=== PATIENT | male | born 1985 | race Caucasian/White ===

== ENCOUNTER 2020-06-11 18:16 | Inpatient (IN) | payer OTHER ==
[2020-06-11 18:41] VITALS: BMI 32.8
[2020-06-11] MEDS ORDERED: BISMUTH SUBSALICYLATE 524 MG/30 ML UD PO PRN (18:57)
[2020-06-11] MEDS ORDERED: MAGNESIUM HYDROX 2400MG/30ML ORAL SUSPENSION 30 ML CUP PO PRN (18:57)
[2020-06-11] MEDS ORDERED: MAGNESIUM CITRATE 300 ML BOTTLE PO PRN (18:57)
[2020-06-11] MEDS ORDERED: MAG HYDROX/AL HYDROX/SIMETH 30 ML UNIT-DOSE CUP PO PRN (18:57)
[2020-06-11] MEDS ORDERED: METHOCARBAMOL 500 MG TABLET PO PRN (18:57)
[2020-06-11] MEDS ORDERED: ONDANSETRON *ODT* 4 MG TABLET SL PRN (18:57)
[2020-06-11] MEDS ORDERED: IBUPROFEN 400 MG TABLET (FP) PO PRN (18:57)
[2020-06-11] MEDS ORDERED: MENTHOL/PHENOL 1 EACH UD MM PRN (18:57)
[2020-06-11] MEDS ORDERED: ACETAMINOPHEN 325 MG TABLET (FP) PO PRN ×2 (18:57)
[2020-06-11] MEDS ORDERED: cloNIDine HCL 0.1 MG TABLET PO PRN (18:59)
[2020-06-11] MEDS: hydrOXYzine PAMOATE 25 MG CAPSULE (FP) PO PRN (20:12)
[2020-06-11] MEDS ORDERED: METHADONE HCL 10 MG TABLET (FOR DETOX USE ONLY) PO ONE (22:00)
[2020-06-11] MEDS: THIAMINE HCL 100 MG TABLET (FP) PO SCH (22:12)
[2020-06-11] MEDS: MELATONIN 5 MG TABLETS PO SCH (22:12)
[2020-06-12] MEDS ORDERED: METHADONE HCL 10 MG TABLET (FOR DETOX USE ONLY) ONE (09:19)
[2020-06-12] MEDS ORDERED: METHADONE HCL 5 MG TABLET (FOR DETOX USE ONLY) ONE (09:19)
[2020-06-12] MEDS ORDERED: METHADONE (DETOX) 20 MG, METHADONE (DETOX) 5 MG PO ONE (10:00)
[2020-06-12 10:19] LABS: POTASSIUM 4.2 mmol/L (3.5-5.1)
[2020-06-12 10:23] LABS: HEMATOCRIT 40.1 % (35.4-49); HEMOGLOBIN 12.8 GM/dL (11.7-16.9); MCH 26.6 pg (25.7-33.7); MCHC 31.9 g/dl (32.0-35.9); MEAN CELL VOLUME 83.4 fl (80-96); MEAN PLT VOLUME 8.7 fl (7.5-11.1); PLATELET COUNT 299 K/MM3 (134-434); RBC 4.81 M/mm3 (4.00-5.60); RDW 13.5 % (11.9-15.9); WHITE BLOOD COUNT 6.5 K/mm3 (4.0-10.0)
[2020-06-12] MEDS: PRENATAL VITAMINS W/ FOLIC ACID TABLET (FP) PO SCH (10:25)
[2020-06-12 10:26] LABS: ALBUMIN 3.5 g/dl (3.4-5.0); BLOOD UREA NITROGEN 13.8 mg/dL (7-18); CALCIUM 9.4 mg/dL (8.5-10.1)
[2020-06-12 10:31] LABS: BILIRUBIN,TOTAL 0.6 mg/dL (0.2-1); TOT PROT 6.8 g/dl (6.4-8.2)
[2020-06-12] MEDS: hydrOXYzine PAMOATE 25 MG CAPSULE (FP) PO PRN ×2 (13:03→19:40)
[2020-06-12] MEDS: MELATONIN 5 MG TABLETS PO SCH (23:33)
[2020-06-12] MEDS: THIAMINE HCL 100 MG TABLET (FP) PO SCH (23:33)
[2020-06-13] MEDS ORDERED: METHADONE HCL 10 MG TABLET (FOR DETOX USE ONLY) PO ONE (10:00)
[2020-06-13] MEDS: PRENATAL VITAMINS W/ FOLIC ACID TABLET (FP) PO SCH (10:36)
[2020-06-13] MEDS: diazePAM 5 MG TABLET PO PRN ×3 (11:14→20:08)
[2020-06-14] MEDS: MELATONIN 5 MG TABLETS PO SCH ×2 (00:09→22:26)
[2020-06-14] MEDS: THIAMINE HCL 100 MG TABLET (FP) PO SCH ×2 (00:10→22:25)
[2020-06-14] MEDS: diazePAM 5 MG TABLET PO PRN ×4 (08:45→22:25)
[2020-06-14] MEDS ORDERED: METHADONE HCL 10 MG TABLET (FOR DETOX USE ONLY) ONE (09:35)
[2020-06-14] MEDS ORDERED: METHADONE HCL 5 MG TABLET (FOR DETOX USE ONLY) ONE (09:35)
[2020-06-14] MEDS ORDERED: METHADONE (DETOX) 10 MG, METHADONE (DETOX) 5 MG PO ONE (10:00)
[2020-06-14] MEDS: PRENATAL VITAMINS W/ FOLIC ACID TABLET (FP) PO SCH (10:38)
[2020-06-15] MEDS: diazePAM 5 MG TABLET PO PRN ×2 (05:46→10:17)
[2020-06-15] MEDS ORDERED: METHADONE HCL 10 MG TABLET (FOR DETOX USE ONLY) PO ONE (10:00)
[2020-06-15] MEDS: PRENATAL VITAMINS W/ FOLIC ACID TABLET (FP) PO SCH (10:16)
[2020-06-15] MEDS: hydrOXYzine PAMOATE 25 MG CAPSULE (FP) PO PRN ×2 (16:05→22:13)
[2020-06-15] MEDS: THIAMINE HCL 100 MG TABLET (FP) PO SCH (22:12)
[2020-06-15] MEDS: MELATONIN 5 MG TABLETS PO SCH (22:12)
[2020-06-16] MEDS ORDERED: METHADONE HCL 5 MG TABLET (FOR DETOX USE ONLY) PO ONE (06:00)
[2020-06-16 06:46] VITALS: TEMP 97.1
[2020-06-16 11:17] VITALS: BP 138/89; PULSE 105
== END 2020-06-16 09:54 | disposition home or self-care (01) | DRG 773 ==
LOC: YASAS 18:16 → Y6N 19:15
PROVIDERS: ADMIT Allergy & Immunology; ATTEND Allergy & Immunology
PROC: HZ2ZZZZ Detoxification Services for Substance Abuse Treatment (ICD-10-PCS; principal; 2020-06-11)
DX: F11.23 Opioid dependence with withdrawal (principal); F17.210 Nicotine dependence, cigarettes, uncomplicated
CPT/HCPCS: 36415; 80053; 85027; 86780; 93005; 93010; C9803; J0735; U0003

== ENCOUNTER 2021-06-14 16:45 | Inpatient (IN) | payer OTHER ==
[2021-06-14 18:34] VITALS: BMI 37.8
[2021-06-14] MEDS ORDERED: MENTHOL/PHENOL 1 EACH UD MM PRN (18:57)
[2021-06-14] MEDS ORDERED: IBUPROFEN 400 MG TABLET (FP) PO PRN (18:57)
[2021-06-14] MEDS ORDERED: ONDANSETRON *ODT* 4 MG TABLET SL PRN (18:57)
[2021-06-14] MEDS ORDERED: MAGNESIUM HYDROX 2400MG/30ML ORAL SUSPENSION 30 ML CUP PO PRN (18:57)
[2021-06-14] MEDS ORDERED: MAG HYDROX/AL HYDROX/SIMETH 30 ML UNIT-DOSE CUP PO PRN (18:57)
[2021-06-14] MEDS ORDERED: BISMUTH SUBSALICYLATE 524 MG/30 ML PO PRN (18:57)
[2021-06-14] MEDS ORDERED: ACETAMINOPHEN 325 MG TABLET (FP) PO PRN ×2 (18:57)
[2021-06-14] MEDS ORDERED: MAGNESIUM CITRATE 300 ML BOTTLE PO PRN (18:57)
[2021-06-14] MEDS: PRENATAL VITAMINS W/ FOLIC ACID TABLET (FP) PO SCH (19:56)
[2021-06-14] MEDS: MELATONIN 5 MG TABLETS PO SCH (22:24)
[2021-06-14] MEDS: THIAMINE HCL 100 MG TABLET (FP) PO SCH (22:24)
[2021-06-14] MEDS: hydrOXYzine PAMOATE 25 MG CAPSULE (FP) PO SCH (22:24)
[2021-06-14] MEDS: METHOCARBAMOL 500 MG TABLET PO PRN (22:25)
[2021-06-15] MEDS: hydrOXYzine PAMOATE 25 MG CAPSULE (FP) PO SCH ×5 (06:07→22:35)
[2021-06-15] MEDS: PRENATAL VITAMINS W/ FOLIC ACID TABLET (FP) PO SCH (10:14)
[2021-06-15] MEDS ORDERED: FLU VACC QS2021-22(6MOS UP)/PF 60 MCG/0.5 ML SYRINGE IM ONE (13:00)
[2021-06-15 13:56] LABS: HEMATOCRIT 37.9 % (35.4-49); HEMOGLOBIN 12.5 GM/dL (11.7-16.9); MCH 27.2 pg (25.7-33.7); MEAN CELL VOLUME 82.3 fl (80-96); MEAN PLT VOLUME 8.5 fl (7.5-11.1); PLATELET COUNT 270 10^3/uL (134-434); RBC 4.61 M/mm3 (4.00-5.60); RDW 13.7 % (11.9-15.9); WHITE BLOOD COUNT 8.9 K/mm3 (4.0-10.0)
[2021-06-15 14:24] LABS: ALBUMIN 3.2 g/dl (3.4-5.0); BLOOD UREA NITROGEN 16.7 mg/dL (7-18)
[2021-06-15 14:25] LABS: CALCIUM 9.3 mg/dL (8.5-10.1)
[2021-06-15 14:28] LABS: TOT PROT 7.1 g/dl (6.4-8.2)
[2021-06-15 14:29] LABS: BILIRUBIN,TOTAL 0.4 mg/dL (0.2-1)
[2021-06-15 16:08] LABS: HIV INTERPRETATION NEGATIVE (NEGATIVE)
[2021-06-15] MEDS ORDERED: methaDONE HCL 10 MG TABLET (FOR DETOX USE ONLY) PO ONE (18:34)
[2021-06-15] MEDS: THIAMINE HCL 100 MG TABLET (FP) PO SCH (22:35)
[2021-06-15] MEDS: MELATONIN 5 MG TABLETS PO SCH (22:35)
[2021-06-16] MEDS: hydrOXYzine PAMOATE 25 MG CAPSULE (FP) PO SCH ×5 (06:57→22:13)
[2021-06-16] MEDS: PRENATAL VITAMINS W/ FOLIC ACID TABLET (FP) PO SCH (10:29)
[2021-06-16] MEDS: NICOTINE 10 MG CARTRIDGE (INHALER) IH PRN (15:53)
[2021-06-16] MEDS: METHOCARBAMOL 500 MG TABLET PO PRN (18:01)
[2021-06-16] MEDS: THIAMINE HCL 100 MG TABLET (FP) PO SCH (22:13)
[2021-06-16] MEDS: cloNIDine HCL 0.1 MG TABLET PO PRN (22:14)
[2021-06-16] MEDS: MELATONIN 5 MG TABLETS PO SCH (22:14)
[2021-06-17] MEDS: hydrOXYzine PAMOATE 25 MG CAPSULE (FP) PO SCH ×5 (07:13→22:01)
[2021-06-17] MEDS ORDERED: methaDONE HCL 10 MG TABLET (FOR DETOX USE ONLY) PO ONE (10:00)
[2021-06-17] MEDS: PRENATAL VITAMINS W/ FOLIC ACID TABLET (FP) PO SCH (10:37)
[2021-06-17] MEDS: METHOCARBAMOL 500 MG TABLET PO PRN ×2 (10:39→18:05)
[2021-06-17] MEDS: cloNIDine HCL 0.1 MG TABLET PO PRN (18:04)
[2021-06-17] MEDS: NICOTINE 10 MG CARTRIDGE (INHALER) IH PRN (18:06)
[2021-06-17] MEDS: MELATONIN 5 MG TABLETS PO SCH (22:01)
[2021-06-17] MEDS: THIAMINE HCL 100 MG TABLET (FP) PO SCH (22:01)
[2021-06-18] MEDS: hydrOXYzine PAMOATE 25 MG CAPSULE (FP) PO SCH (06:17)
[2021-06-18 09:07] VITALS: BP 124/72; PULSE 73; TEMP 96.9
== END 2021-06-18 09:46 | disposition home or self-care (01) | DRG 773 ==
LOC: YASAS 16:45 → UNDOADMIN 18:48 → Y3N 18:48
PROVIDERS: ADMIT Allergy & Immunology; ATTEND Allergy & Immunology
PROC: HZ2ZZZZ Detoxification Services for Substance Abuse Treatment (ICD-10-PCS; principal; 2021-06-14)
DX: F11.23 Opioid dependence with withdrawal (principal); F17.210 Nicotine dependence, cigarettes, uncomplicated; K59.00 Constipation, unspecified
CPT/HCPCS: 36415; 80053; 82947; 85027; 86780; 87389; 90686; C9803; G0008; J0735; U0003; U0005

== ENCOUNTER 2022-02-15 14:36 | Inpatient (IN) | payer OTHER ==
[2022-02-15 16:25] VITALS: BMI 38.9
[2022-02-15] MEDS ORDERED: LOPERAMIDE HCL 2 MG CAPSULE PO PRN (17:29)
[2022-02-15] MEDS ORDERED: BENZOCAINE/MENTHOL (CHLORASEPTIC ) LOZENGE MM PRN (17:29)
[2022-02-15] MEDS ORDERED: DICYCLOMINE HCL 10 MG CAPSULE PO PRN (17:29)
[2022-02-15] MEDS ORDERED: MAGNESIUM CITRATE 300 ML BOTTLE PO PRN (17:29)
[2022-02-15] MEDS ORDERED: ONDANSETRON *ODT* 4 MG TABLET SL PRN (17:29)
[2022-02-15] MEDS ORDERED: NICOTINE 10 MG CARTRIDGE (INHALER) IH PRN (17:29)
[2022-02-15] MEDS ORDERED: IBUPROFEN 600 MG TABLET (FP) PO PRN (17:29)
[2022-02-15] MEDS ORDERED: BISMUTH SUBSALICYLATE 524 MG/30 ML PO PRN (17:29)
[2022-02-15] MEDS ORDERED: ACETAMINOPHEN 325 MG TABLET (FP) PO PRN ×2 (17:29)
[2022-02-15] MEDS ORDERED: MAGNESIUM HYDROX 2400MG/30ML ORAL SUSPENSION 30 ML CUP PO PRN (17:29)
[2022-02-15] MEDS ORDERED: MAG HYDROX/AL HYDROX/SIMETH 30 ML UNIT-DOSE CUP PO PRN (17:29)
[2022-02-15] MEDS ORDERED: IBUPROFEN 400 MG TABLET (FP) PO PRN (17:29)
[2022-02-15] MEDS: hydrOXYzine PAMOATE 25 MG CAPSULE (FP) PO SCH ×2 (18:24→22:41)
[2022-02-15] MEDS: PRENATAL VITAMINS W/ FOLIC ACID TABLET (FP) PO SCH (18:26)
[2022-02-15] MEDS: MELATONIN 5 MG TABLETS PO SCH (22:40)
[2022-02-15] MEDS: THIAMINE HCL 100 MG TABLET (FP) PO SCH (22:40)
[2022-02-15] MEDS: METHOCARBAMOL 500 MG TABLET PO PRN (22:41)
[2022-02-16] MEDS: hydrOXYzine PAMOATE 25 MG CAPSULE (FP) PO SCH (07:08)
[2022-02-16] MEDS ORDERED: methaDONE HCL 10 MG TABLET (FOR DETOX USE ONLY) PO ONE (09:17)
[2022-02-16] MEDS: PRENATAL VITAMINS W/ FOLIC ACID TABLET (FP) PO SCH (09:46)
[2022-02-16 11:09] LABS: HEMATOCRIT 38.7 % (35.4-49); MCH 27.1 pg (25.7-33.7); MCHC 33.5 g/dl (32.0-35.9); MEAN CELL VOLUME 80.8 fl (80-96); MEAN PLT VOLUME 8.8 fl (7.5-11.1); PLATELET COUNT 284 10^3/uL (134-434); RBC 4.78 M/mm3 (4.00-5.60); RDW 14.4 % (11.9-15.9); WHITE BLOOD COUNT 10.4 K/mm3 (4.0-10.0)
[2022-02-16 11:26] LABS: CALCIUM 9.3 mg/dL (8.5-10.1)
[2022-02-16 11:27] LABS: ALBUMIN 3.7 g/dl (3.4-5.0); BLOOD UREA NITROGEN 17.5 mg/dL (7-18)
[2022-02-16] MEDS: METHOCARBAMOL 500 MG TABLET PO PRN ×2 (11:28→22:44)
[2022-02-16 11:30] LABS: CREATININE 1.1 mg/dL (0.55-1.3)
[2022-02-16 11:31] LABS: BILIRUBIN,TOTAL 0.4 mg/dL (0.2-1); TOT PROT 7.3 g/dl (6.4-8.2)
[2022-02-16] MEDS ORDERED: hydrOXYzine PAMOATE 25 MG CAPSULE (FP) PO ONE (12:53)
[2022-02-16] MEDS: MELATONIN 5 MG TABLETS PO SCH (22:43)
[2022-02-16] MEDS: THIAMINE HCL 100 MG TABLET (FP) PO SCH (22:43)
[2022-02-16] MEDS: cloNIDine HCL 0.1 MG TABLET PO PRN (22:43)
[2022-02-17] MEDS ORDERED: hydrOXYzine PAMOATE 25 MG CAPSULE (FP) PO ONE (09:50)
[2022-02-17] MEDS ORDERED: cloNIDine HCL 0.1 MG TABLET PO ONE (09:51)
[2022-02-17] MEDS: PRENATAL VITAMINS W/ FOLIC ACID TABLET (FP) PO SCH (10:28)
[2022-02-17 21:11] VITALS: RESP 18
[2022-02-17] MEDS: THIAMINE HCL 100 MG TABLET (FP) PO SCH (22:20)
[2022-02-17] MEDS: MELATONIN 5 MG TABLETS PO SCH (22:20)
[2022-02-17] MEDS: METHOCARBAMOL 500 MG TABLET PO PRN (22:21)
[2022-02-17] MEDS: cloNIDine HCL 0.1 MG TABLET PO PRN (22:21)
[2022-02-18 08:52] VITALS: BP 143/75; PULSE 78; TEMP 97.7
[2022-02-18] MEDS ORDERED: methaDONE HCL 10 MG TABLET (FOR DETOX USE ONLY) PO ONE (10:00)
[2022-02-18] MEDS: PRENATAL VITAMINS W/ FOLIC ACID TABLET (FP) PO SCH (10:40)
[2022-02-18] MEDS ORDERED: hydrOXYzine PAMOATE 25 MG CAPSULE (FP) PO ONE (11:01)
[2022-02-20] MEDS ORDERED: methaDONE HCL 10 MG TABLET (FOR DETOX USE ONLY) PO ONE (10:00)
== END 2022-02-18 11:58 | disposition left against medical advice (07) | DRG 770 ==
LOC: YASAS 14:36 → Y3N 17:43
PROVIDERS: ADMIT Allergy & Immunology; ATTEND Surgery
PROC: HZ2ZZZZ Detoxification Services for Substance Abuse Treatment (ICD-10-PCS; principal; 2022-02-15)
DX: F11.23 Opioid dependence with withdrawal (principal); F17.210 Nicotine dependence, cigarettes, uncomplicated; F32.A Depression, unspecified; K59.00 Constipation, unspecified
CPT/HCPCS: 36415; 80053; 83036; 85027; 86780; 87811; C9803-CS; J0735; U0003; U0005

== ENCOUNTER 2024-01-30 18:27 | Inpatient (IN) | payer OTHER ==
[2024-01-30 18:53] VITALS: BMI 37.3
[2024-01-30] MEDS ORDERED: IBUPROFEN 400 MG TABLET (FP) PO PRN (19:23)
[2024-01-30] MEDS ORDERED: NICOTINE POLACRILEX 2 MG LOZENGE BC PRN (19:23)
[2024-01-30] MEDS ORDERED: LOPERAMIDE HCL 2 MG CAPSULE PO PRN (19:23)
[2024-01-30] MEDS ORDERED: DICYCLOMINE HCL 10 MG CAPSULE PO PRN (19:23)
[2024-01-30] MEDS ORDERED: MAGNESIUM HYDROX 2400MG/30ML ORAL SUSPENSION 30 ML CUP PO PRN (19:23)
[2024-01-30] MEDS ORDERED: ACETAMINOPHEN 325 MG TABLET (FP) PO PRN (19:23)
[2024-01-30] MEDS ORDERED: P-EPHED 60MG/TRIPROLIDI 2.5MG TABLET PO PRN (19:23)
[2024-01-30] MEDS ORDERED: BENZONATATE 200 MG CAPSULE PO PRN (19:23)
[2024-01-30] MEDS ORDERED: POLYETHYLENE GLYCOL (HEALTHYLAX) 3350 17 GM PACKET PO PRN (19:23)
[2024-01-30] MEDS ORDERED: NALOXONE (NARCAN) HCL 4 MG/0.1 ML SPRAY NS PRN (19:23)
[2024-01-30] MEDS ORDERED: IBUPROFEN 600 MG TABLET (FP) PO PRN (19:23)
[2024-01-30] MEDS ORDERED: NICOTINE POLACRILEX 2 MG GUM BUC PRN (19:23)
[2024-01-30] MEDS ORDERED: BENZOCAINE/MENTHOL (CHLORASEPTIC ) LOZENGE MM PRN (19:23)
[2024-01-30] MEDS ORDERED: guaiFENesin 600 MG TABLET.ER (FP) PO PRN (19:23)
[2024-01-30] MEDS ORDERED: MAG HYDROX/AL HYDROX/SIMETH 30 ML UNIT-DOSE CUP PO PRN (19:23)
[2024-01-30] MEDS ORDERED: NALOXONE HCL 0.4 MG/ML VIAL IM PRN (19:23)
[2024-01-30] MEDS ORDERED: BISMUTH SUBSALICYLATE 524 MG/30 ML PO PRN (19:23)
[2024-01-30] MEDS: THIAMINE 100 MG TABLET PO SCH (22:54)
[2024-01-30] MEDS: MELATONIN 5 MG TABLETS PO SCH (22:55)
[2024-01-31] MEDS: PRENATAL VITAMINS W/ FOLIC ACID TABLET (FP) PO SCH (09:16)
[2024-01-31] MEDS: hydrOXYzine PAMOATE 25 MG CAPSULE (FP) PO PRN (09:16)
[2024-01-31] MEDS: METHOCARBAMOL 500 MG TABLET PO PRN (09:16)
[2024-01-31] MEDS: methaDONE HCL 10 MG TABLET PO ONE (09:16)
[2024-01-31] MEDS: cloNIDine HCL 0.1 MG TABLET PO SCH (09:18)
[2024-01-31] MEDS ORDERED: methaDONE HCL 10 MG TABLET PO PRN (10:30)
[2024-01-31 11:47] LABS: HEMATOCRIT 38.2 % (35.4-49); HEMOGLOBIN 12.6 GM/dL (11.7-16.9); MCH 27.1 pg (25.7-33.7); MEAN PLT VOLUME 8.7 fl (7.5-11.1); PLATELET COUNT 305 10^3/uL (134-434); RBC 4.66 M/mm3 (4.00-5.60); WHITE BLOOD COUNT 8.9 K/mm3 (4.0-10.0)
[2024-01-31 12:07] LABS: POTASSIUM 4.3 mmol/L (3.5-5.1)
[2024-01-31 12:26] LABS: ALBUMIN 3.6 g/dl (3.4-5.0); BLOOD UREA NITROGEN 14.9 mg/dL (7-18); CALCIUM 9.5 mg/dL (8.5-10.1)
[2024-01-31 12:30] LABS: CREATININE 0.8 mg/dL (0.55-1.3); TOT PROT 7.2 g/dl (6.4-8.2)
[2024-01-31 12:31] LABS: BILIRUBIN,TOTAL 0.3 mg/dL (0.2-1)
[2024-01-31 13:18] LABS: HIV INTERPRETATION NEGATIVE (NEGATIVE)
[2024-02-01] MEDS: methaDONE 40 MG, methaDONE 10 MG PO ONE (10:26)
[2024-02-02] MEDS: cloNIDine HCL 0.1 MG TABLET PO PRN (09:50)
[2024-02-02] MEDS: methaDONE 40 MG, methaDONE 20 MG PO ONE (09:50)
[2024-02-03] MEDS: ONDANSETRON *ODT* 4 MG TABLET SL PRN (01:29)
[2024-02-03] MEDS: TRIMETHOBENZAMIDE HCL 200MG/2ML INJ IM ONE (03:43)
[2024-02-03] MEDS: ONDANSETRON *ODT* 4 MG TABLET SL ONE (08:00)
[2024-02-03 09:09] VITALS: RESP 16
[2024-02-03] MEDS: methaDONE 40 MG, methaDONE 30 MG PO ONE (09:35)
[2024-02-03 12:52] VITALS: BP 148/94; PULSE 82; TEMP 98.7
[2024-02-04] MEDS ORDERED: methaDONE HCL 40 MG DISPERSABLE TABLET PO ONE (10:00)
[2024-02-05] MEDS ORDERED: methaDONE 80 MG, methaDONE 10 MG PO ONE (10:00)
== END 2024-02-03 13:10 | disposition left against medical advice (07) | DRG 770 ==
LOC: YASAS 18:27 → Y6N 19:32
PROVIDERS: ADMIT Allergy & Immunology; ATTEND Psychiatry & Neurology Pain Medicine
PROC: HZ2ZZZZ Detoxification Services for Substance Abuse Treatment (ICD-10-PCS; principal; 2024-01-30)
DX: F11.23 Opioid dependence with withdrawal (principal); F17.210 Nicotine dependence, cigarettes, uncomplicated
CPT/HCPCS: 36415; 80053; 80305; 80307; 85027; 86780; 86803; 87389; 93005; 93010; Q0162